=== PATIENT | male | born 1975 | race Two or more races ===

== ENCOUNTER 2016-08-24 13:09 | Emergency (ER) | payer OTHER ==
[~2016-08-24] VITALS: Ht 177.8 cm; Wt 81.6 kg
--- NOTE | 2016-08-24 15:28 | Diagnostic Imaging Report ---
Indication: Back pain Technique: Continuous helical transaxial imaging of the lumbar spine was obtained from the lung bases to the pubic symphysis. No IV contrast was administered. Coronal 2-D reformats were also obtained. Study obtained in a Siemens sensation [address] Total Dose length Product (DLP): [address] Dose Index Volume (CTDIvol): 13 mGy Comparison: None Findings: There is no evidence of an acute fracture or malalignment. Height and configuration of the vertebral bodies and intervertebral discs are within normal limits. Small marginal spurs are noted at the level of the lumbar facets. Some calcification and hypertrophy of the ligamentum flavum also noted. There is no soft tissue swelling. Impression: No acute injury The CT scanner at [facility] is accredited by the [employer] and the scans are performed using protocols designed to limit radiation exposure to as low as reasonably achievable to attain images of sufficient resolution adequate for diagnostic evaluation.
[2016-08-24] MEDS ORDERED: IBUPROFEN600 MG ORAL (15:43)
[2016-08-24] MEDS ORDERED: ROBAXIN-750750 MG PO (15:43)
[2016-08-24 15:50] VITALS: BP 126/84
--- NOTE | 2016-08-25 19:29 | Emergency Room Report ---
History of Present Illness General Chief Complaint: Lower Back Pain or Injury Source: Patient Present Illness HPI Patient presents with complaints of low back pain Soon prior to arrival the patient had lifted a patient onto a gurney After continued to work And later on attempting to lift something off the ground patient had continued discomfort and lower back And presents for further eval Patient essentially was helped onto the ground when the pain came on How denies any obvious trauma Denies any focal weakness at this time Denies any saddle paresthesia Allergies: Coded Allergies: No Known Allergies (Unverified , 08/24/16) Patient History Past Medical History: see triage record Pertinent Family History: none Reviewed Nursing Documentation: PMH: Agreed, PSxH: Agreed Nursing Documentation-PMH Past Medical History: No Stated History Review of Systems All Other Systems: negative except mentioned in HPI Physical Exam Vital Signs Date Time Temp Pulse Resp B/P Pulse Ox O2 Delivery O2 Flow Rate FiO2 08/24/16 13:35 97.9 78 16 119/71 100 Room Air Sp02 EP Interpretation: reviewed, normal General Appearance: well appearing, no apparent distress Head: normocephalic, atraumatic Eyes: bilateral eye EOMI, bilateral eye PERRL ENT: hearing grossly normal, normal pharynx, TMs + canals normal, uvula midline Neck: full range of motion, supple, no meningismus, no bony tend Respiratory: lungs clear, normal breath sounds, no rhonchi, no respiratory distress, no retraction, no accessory muscle use Cardiovascular #1: normal peripheral pulses, regular rate, rhythm, no edema, no gallop, no JVD, no murmur Gastrointestinal: normal bowel sounds, non tender, soft, no mass, no organomegaly, non-distended, no guarding, no hernia, no pulsatile mass, no rebound Genitourinary: no CVA tenderness Musculoskeletal: other - Increased muscle skeletal spasming paraspinal L3-4-5 region, no midline step-off, sensory is intact patient is able to bear weight, Neurologic: oriented x3, responsive, barrel polisher III-XII nml as tested, sensory intact Psychiatric: mood/affect normal Skin: normal color, no rash, warm/dry, palpation normal Lymphatic: normal inspection, no adenopathy Medical Decision Making Diagnostic Impression: Primary Impression: back sprain ER Course Patient had imaging study obtained which does not show any obvious acute disease Patient was provided with pain medication and muscle relaxants Patient will require close outpatient followup with workers comp and further imaging such as MRI if the discomfort continues CT/MRI/US Diagnostic Results CT/MRI/US Diagnostic Results : Impression CTL spine:No acute disease Last Vital Signs Date Time Temp Pulse Resp B/P Pulse Ox O2 Delivery O2 Flow Rate FiO2 08/24/16 15:50 97.5 84 14 126/84 99 Room Air Status: improved Disposition: HOME, SELF-CARE Condition: Improved Scripts Methocarbamol* (ROBAXIN-750*) 750 Mg Tablet 750 MG PO TID, #21 TAB 0 Refills Prov: JAMIE KLINE D.O. 08/24/16 Ibuprofen* (MOTRIN*) 600 Mg Tablet 600 MG ORAL Q8H Y for For Pain, #20 TAB 0 Refills Prov: JAMIE KLINE D.O. 08/24/16 Referrals: NOT CHOSEN [facility]/,REFERRING (PCP) Patient Instructions: Lumbosacral Strain Additional Instructions: Patient is provided with the discharge instructions notified to follow up with primary doctor in the next 2-3 days otherwise return to the er with any worsening symptoms. Please note that this report is being documented using [employer] technology. This can lead to erroneous entry secondary to incorrect interpretation by the dictating instrument. JAMIE KLINE D.O. Aug 25, 2016 19:29
== END 2016-08-24 16:11 | disposition home or self-care (01) ==
LOC: EMR 14:36
DX: S33.5XXA Sprain of ligaments of lumbar spine, initial encounter (principal); X50.0XXA Overexertion from strenuous movement or load, initial encounter; Y93.9 Activity, unspecified; Y99.0 Civilian activity done for income or pay
CPT/HCPCS: 72131; 99284